=== PATIENT | male | born 1990 | race Caucasian/White ===

== ENCOUNTER 2017-06-10 08:48 | Emergency (ER) | payer OTHER ==
[~2017-06-10] VITALS: Ht 177.8 cm; Wt 83.9 kg
[~2017-06-10 08:48] MED LIST: KETO10 PO; Norco 5-325 Ta1 EACH PO
[2017-06-10] MEDS ORDERED: IBUP800 PO (10:35)
== END 2017-06-10 10:52 | disposition home or self-care (01) ==
LOC: ER 08:48
DX: R07.89 Other chest pain (principal); F17.220 Nicotine dependence, chewing tobacco, uncomplicated
CPT/HCPCS: 71046; 93005; 93010; 99283

== ENCOUNTER 2020-03-21 23:11 | Emergency (ER) | payer OTHER ==
[~2020-03-21] VITALS: Ht 180.3 cm; Wt 104.3 kg
[~2020-03-21 23:11] MED LIST changes: +IBUP800 PO
[2020-03-22 01:15] LABS: Influenza A, PCR Negative (NEGATIVE); Influenza B, PCR Negative (NEGATIVE); Resp Syncytial Virus, PCR Negative (NEGATIVE); SARS-Cov-2 (COVID-19) PCR, MMC Negative (NEGATIVE)
== END 2020-03-22 00:59 | disposition home or self-care (01) ==
LOC: ER 23:11
PROVIDERS: Physician Assistant
DX: J02.9 Acute pharyngitis, unspecified (principal); R05 Cough; Z20.822 Contact with and (suspected) exposure to COVID-19; Z87.891 Personal history of nicotine dependence
CPT/HCPCS: 0241U; 87430; 99283